=== PATIENT | female | born 1960 | race Caucasian/White ===

== ENCOUNTER 2017-02-23 13:38 | Emergency (ER) | payer SELFPAY ==
[~2017-02-23] VITALS: Ht 152.4 cm; Wt 71.5 kg
[~2017-02-23 13:38] MED LIST: asa
[2017-02-23 13:41] VITALS: Ht 152.4 cm; Wt 71.5 kg
== END 2017-02-23 22:30 | disposition left against medical advice (07) ==
LOC: E/R 13:38
DX: Z53.21 Procedure and treatment not carried out due to patient leaving prior to being seen by health care provider (principal)

== ENCOUNTER 2017-03-29 14:51 | Emergency (ER) | payer OTHER ==
[~2017-03-29] VITALS: Ht 152.4 cm; Wt 72.0 kg
[2017-03-29 15:17] VITALS: Ht 152.4 cm; Wt 72.0 kg
[2017-03-29] MEDS ORDERED: LIDOCAINE/MYLANTA 40 ML BTL PO STA (17:01)
[2017-03-29] MEDS ORDERED: FAMOTIDINE 20 MG INJ IV STA (17:01)
--- NOTE | 2017-03-29 17:25 | ERD ---
ER Documentation Chief Complaint Date/Time DATE: 03/29/17 TIME: 17:24 Chief Complaint CAME IN VIA INTAKE DUE TO LEFT SIDED FLANK PAIN HPI This is a pleasant 56-year-old female who presents to the emergency room complaining of left flank pain. She describes several weeks of worsening left flank pain that is occasionally postprandial. She describes that it radiates to her back and is 8 out of 10. She describes associated nausea. Slight constipation. She has a history of cholecystectomy. ROS All systems reviewed and are negative except as per history of present illness. Medications Home Meds Active Scripts Omeprazole* (Omeprazole*) 20 Mg Capsule.dr, 20 MG PO DAILY, #30 Prov:MEGAN COLON MD 03/29/17 Reported Medications Aspirin* (Aspirin* Chew) 81 Mg Tab.chew, 81 MG PO DAILY, TAB.CHEW 03/29/17 Discontinued Reported Medications asa 10/03/09 Allergies Allergies: Coded Allergies: No Known Allergies (Verified Allergy, Mild, 06/10/13) PMhx/Soc History of Surgery: Yes (LAPAROSCOPIC CHOLECYSTECTOMY) Anesthesia Reaction: No Hx Neurological Disorder: No Hx Respiratory Disorders: Yes (PE) Hx Cardiac Disorders: Yes (MITRAL VALVE PROLAPSE) Hx Psychiatric Problems: No Hx Miscellaneous Medical Probl: Yes (TIA) Hx Alcohol Use: No Hx Substance Use: No Hx Tobacco Use: No FmHx Family History: No diabetes Physical Exam Vitals Vital Signs Date Time Temp Pulse Resp B/P Pulse Ox O2 Delivery O2 Flow Rate FiO2 03/29/17 18:52 67 16 144/86 97 Room Air 03/29/17 15:17 98.6 75 18 144/84 97 Physical Exam General: Well developed, well nourished, no acute distress Head: Normocephalic, atraumatic. Eyes: Pupils equally reactive, EOM intact ENT: Moist mucous membranes Neck: Supple, no lymphadenopathy Respiratory: Lungs clear bilaterally, no distress Cardiovascular: RRR, no murmurs, rubs, or gallops Abdominal: Soft, mild generalized tenderness without rebound or guarding, non- distended, no peritoneal signs, negative Berry sign and no tenderness to McBurney's point : Deferred MSK: No edema, no unilateral swelling, 5/5 strength Neurologic: Alert and oriented, moving all extremities, normal speech, no focal weakness, no cerebellar signs Skin: No rash Psych: Normal mood Result Diagram: 03/29/17 1900 03/29/17 1725 Results 24 hrs Laboratory Tests Test 03/29/17 17:25 03/29/17 19:00 Sodium Level 135mmol/L Potassium Level 3.9mmol/L Chloride Level 101mmol/L Carbon Dioxide Level 27mmol/L Anion Gap 11 Blood Urea Nitrogen 15mg/dl Creatinine 0.60mg/dl Glucose Level 276mg/dl Calcium Level 9.2mg/dl Total Bilirubin 0.7mg/dl Direct Bilirubin 0.00mg/dl Indirect Bilirubin 0.7mg/dl Aspartate Amino Transf (AST/SGOT) 57IU/L Alanine Aminotransferase (ALT/SGPT) 70IU/L Alkaline Phosphatase 254IU/L Total Protein 7.6g/dl Albumin 3.9g/dl Globulin 3.70g/dl Albumin/Globulin Ratio 1.05 Lipase 162U/L White Blood Count 7.510^3/ul Red Blood Count 5.0610^6/ul Hemoglobin 14.8g/dl Hematocrit 44.6% Mean Corpuscular Volume 88.1fl Mean Corpuscular Hemoglobin 29.2pg Mean Corpuscular Hemoglobin Concent 33.2g/dl Red Cell Distribution Width 13.0% Platelet Count 92603^3/UL Mean Platelet Volume 12.1fl Neutrophils % 58.7% Lymphocytes % 29.6% Monocytes % 6.7% Eosinophils % 3.6% Basophils % 0.9% Nucleated Red Blood Cells % 0.0/100WBC Neutrophils # 4.410^3/ul Lymphocytes # 2.210^3/ul Monocytes # 0.510^3/ul Eosinophils # 0.310^3/ul Basophils # 0.110^3/ul Nucleated Red Blood Cells # 0.010^3/ul Current Medications Medications (Trade) Dose Ordered Sig/June Route PRN Reason Start Time Stop Time Status Last Admin Dose Admin Famotidine (Pepcid Iv) 20 mg ONCE STAT IV 03/29/17 17:01 03/29/17 17:02 DC 03/29/17 17:44 Miscellaneous Medication (Gi Cocktail (2)) 40 ml ONCE STAT PO 03/29/17 17:01 03/29/17 17:02 DC 03/29/17 17:44 Procedures/MDM EKG, MONITORS, & DIAGNOSTIC IMAGING: CT abdomen and pelvis: IMPRESSION: 1. No acute inflammatory process, mass, or adenopathy on this noncontrast CT. 2. No evidence of renal calculi or obstructive uropathy. 3. Status post cholecystectomy. There are drop clips along the liver edge and right lower quadrant. 4. Diverticulosis without acute diverticulitis. 5. Normal appendix. 6. Atrophic appearing uterus LAB INTERPRETATION: No significant leukocytosis, nonspecific transaminitis MEDICAL DECISION MAKING: The patient presents with left flank pain. The symptoms are possibly related to dyspepsia or peptic ulcer disease given postprandial nature. However, given the patient's surgical history would like a bowel movement and nausea concern for possible bowel obstruction exists. Consider diverticulosis or diverticulitis as well. CT imaging seems appropriate at this point. The patient may benefit from outpatient GI referral with endoscopy. ER COURSE: A GI cocktail will be provided. The patient's laboratory testing and diagnostic imaging is unrevealing at this point. Given the patient's description of postprandial symptoms I believe this is most likely a gastric process. Outpatient GI referral for endoscopy would be reasonable. The patient is otherwise well-appearing and safe for outpatient management. I kept the patient and/or family informed of laboratory and diagnostic imaging results throughout the emergency room course. DISPOSITION PLAN: We discussed follow up with the patient's primary care doctor within 24 to 48 hours as needed. We also discussed return to the emergency room for worsening symptoms or worsening condition. Outpatient referral: Gastroenterology Discharge Medications: Prilosec Departure Diagnosis: Primary Impression: Left flank pain Additional Impressions: Dyspepsia Transaminitis Condition: Stable MEGAN COLON MD Mar 29, 2017 17:25
[2017-03-29] MEDS ORDERED: ASPI81TA3 PO (17:35)
[2017-03-29 18:10] LABS: ALBUMIN 3.9 g/dl (3.3-4.9); ALBUMIN/GLOBULIN RATIO 1.05; BILIRUBIN,INDIRECT 0.7 mg/dl (0-1.1); BILIRUBIN,TOTAL 0.7 mg/dl (0.2-1.3); CALCIUM 9.2 mg/dl (8.4-10.2); CREATININE 0.6 mg/dl (0.44-1.00); POTASSIUM 3.9 mmol/L (3.5-5.1); TOTAL PROTEIN 7.6 g/dl (6.1-8.1)
--- NOTE | 2017-03-29 18:18 | RADRPT ---
PROCEDURE: CT abdomen and pelvis without contrast. CLINICAL INDICATION: Abdominal pain TECHNIQUE: Continues 2.5 mm axial images were obtained from the domes of the diaphragms to the inf erior pubic rami. No oral or intravenous contrast was administered. The calculated dose length prod uct (DLP) = 1039.67 mGy-cm. Exam CTDlvol = 20.34 mGy. One or more of the following dose reduction techniques were used: Automated exposure control, adjustment of the mA and or KV according to patie nt size, or use of iterative reconstruction technique. One or more of the following dose reduction techniques were used: Automated exposure control, adjustment of the mA and or KV according to patien t size, or use of iterative reconstruction technique. COMPARISON: None. FINDINGS: The lung bases are clear. No pleural pericardial fluid is seen. Gallbladder surgically absent. There are drop clips along the right inferior liver edge and right lo wer quadrant. There is no biliary duct dilatation. Liver, pancreas, spleen, adrenals, and kidneys ar e within normal limits on this noncontrast study. Is no evidence renal calculi or obstructive uropat hy. Aorta is normal in caliber. There are no pathologically enlarged mesenteric lymph nodes. The sto mach and small bowel loops are within normal limits. No small bowel dilatation or obstruction is see n. There is no free fluid, free air, abscess in the upper abdomen CT pelvis: Images through the pelvis demonstrate no free fluid, free air, abscess. Bladder is camilo lly distended grossly unremarkable. Uterus is atrophic in appearance. Adnexal regions are grossly un remarkable. Evaluation of the colon demonstrates sigmoid and left colonic diverticulosis. There is n o acute diverticulitis or colitis. Normal appendix is identified. There are no pathologically enlarg ed iliac chain lymph nodes. No destructive bony lesions are seen. IMPRESSION: 1. No acute inflammatory process, mass, or adenopathy on this noncontrast CT. 2. No evidence of renal calculi or obstructive uropathy. 3. Status post cholecystectomy. There are drop clips along the liver edge and right lower quadrant. 4. Diverticulosis without acute diverticulitis. 5. Normal appendix. 6. Atrophic appearing uterus RPTAT: .Landon Johnson MD, MD Date Time Electronically viewed and signed by .Landon Johnson MD, MD on 03/29/2017 18:18 .W/
[2017-03-29 18:52] VITALS: BP 144/86; PULSE 67; RESP 16
[2017-03-29 19:17] LABS: BASOPHIL # 0.1 10^3/ul (0.0-0.1); BASOPHILS % 0.9 % (0.0-2.0); EOSINOPHILS # 0.3 10^3/ul (0.0-0.5); EOSINOPHILS % 3.6 % (0.0-7.0); HEMATOCRIT 44.6 % (37.0-47.0); HEMOGLOBIN 14.8 g/dl (12.0-16.0); LYMPHOCYTES # 2.2 10^3/ul (0.8-2.9); LYMPHOCYTES % 29.6 % (15.0-51.0); MEAN CORPUSCULAR HEMOGLOBIN 29.2 pg (29.0-33.0); MEAN CORPUSCULAR HGB CONC 33.2 g/dl (32.0-37.0); MEAN CORPUSCULAR VOLUME 88.1 fl (82.0-101.0); MEAN PLATELET VOLUME 12.1 fl (7.4-10.4); MONOCYTE # 0.5 10^3/ul (0.3-0.9); MONOCYTES % 6.7 % (0.0-11.0); NEUTROPHIL # 4.4 10^3/ul (1.6-7.5); NEUTROPHILS % 58.7 % (39.0-77.0); PLATELET COUNT 156 10^3/UL (140-415); RED BLOOD COUNT 5.06 10^6/ul (4.20-5.40); WHITE BLOOD COUNT 7.5 10^3/ul (4.8-10.8)
[2017-03-29] MEDS ORDERED: OMEP20CA16 PO (19:46)
== END 2017-03-29 20:08 | disposition home or self-care (01) ==
LOC: E/R 14:51
DX: R10.9 Unspecified abdominal pain (principal); R10.13 Epigastric pain; R74.0 Nonspecific elevation of levels of transaminase and lactic acid dehydrogenase [LDH]; Z79.82 Long term (current) use of aspirin
CPT/HCPCS: 36415; 74176; 80053; 83690; 85025; 96374; Z7502; Z7610